=== PATIENT | female | born 1935 | race Two or more races ===

== ENCOUNTER 2018-02-16 13:34 | Outpatient (CLI) | payer MEDICARE, BC | END 2018-02-16 23:59 | disposition home health service (06) | LOC: WOU 13:34 | PROVIDERS: ATTEND Podiatrist Foot & Ankle Surgery | DX: S81.812A Laceration without foreign body, left lower leg, initial encounter (principal); W18.30XA Fall on same level, unspecified, initial encounter; Y92.89 Other specified places as the place of occurrence of the external cause; I87.8 Other specified disorders of veins; R60.0 Localized edema; L90.9 Atrophic disorder of skin, unspecified | CPT/HCPCS: 11042; 11045; A6402; A6452 ==

== ENCOUNTER 2018-02-23 15:08 | Outpatient (CLI) | payer MEDICARE, BC | END 2018-02-23 23:59 | disposition home health service (06) | LOC: EDBD → WOU 15:08 | PROVIDERS: ATTEND Podiatrist Foot & Ankle Surgery | DX: S81.812A Laceration without foreign body, left lower leg, initial encounter (principal); L03.116 Cellulitis of left lower limb; W19.XXXA Unspecified fall, initial encounter; Y92.89 Other specified places as the place of occurrence of the external cause; Y99.8 Other external cause status; L90.9 Atrophic disorder of skin, unspecified | CPT/HCPCS: 11042; 11045; A6402 ×2; A6452 ==

== ENCOUNTER 2018-03-02 12:24 | Outpatient (CLI) | payer MEDICARE, BC | END 2018-03-02 23:59 | disposition home health service (06) | LOC: EDBD → WOU 12:24 | PROVIDERS: ATTEND Podiatrist Foot & Ankle Surgery | DX: S81.812A Laceration without foreign body, left lower leg, initial encounter (principal); W19.XXXA Unspecified fall, initial encounter; Y92.89 Other specified places as the place of occurrence of the external cause; L90.9 Atrophic disorder of skin, unspecified; I96 Gangrene, not elsewhere classified; R60.0 Localized edema | CPT/HCPCS: 11043; A6402; A6452 ==

== ENCOUNTER 2018-03-09 13:03 | Outpatient (CLI) | payer MEDICARE, BC | END 2018-03-09 23:59 | disposition home health service (06) | LOC: EDBD → WOU 13:03 | PROVIDERS: ATTEND Podiatrist Foot & Ankle Surgery | DX: S81.812A Laceration without foreign body, left lower leg, initial encounter (principal); L03.116 Cellulitis of left lower limb; L90.9 Atrophic disorder of skin, unspecified; W19.XXXA Unspecified fall, initial encounter; Y92.89 Other specified places as the place of occurrence of the external cause; Y99.8 Other external cause status | CPT/HCPCS: 11042; A6402; A6452 ==

== ENCOUNTER 2018-03-16 12:56 | Outpatient (CLI) | payer MEDICARE, BC | END 2018-03-16 23:59 | disposition home health service (06) | LOC: EDBD → WOU 12:56 | PROVIDERS: ATTEND Podiatrist Foot & Ankle Surgery | DX: S81.812A Laceration without foreign body, left lower leg, initial encounter (principal); W19.XXXA Unspecified fall, initial encounter; Y92.89 Other specified places as the place of occurrence of the external cause; R60.9 Edema, unspecified | CPT/HCPCS: 11042; A6402; A6452 ==

== ENCOUNTER 2018-03-23 13:00 | Outpatient (CLI) | payer MEDICARE, BC | END 2018-03-23 23:59 | disposition home health service (06) | LOC: EDBD → WOU 13:00 | PROVIDERS: ATTEND Podiatrist Foot & Ankle Surgery | DX: S81.812A Laceration without foreign body, left lower leg, initial encounter (principal); L97.822 Non-pressure chronic ulcer of other part of left lower leg with fat layer exposed; W19.XXXA Unspecified fall, initial encounter; Y92.89 Other specified places as the place of occurrence of the external cause; R60.9 Edema, unspecified | CPT/HCPCS: 11042; A6402; A6452 ==

== ENCOUNTER 2018-03-30 13:17 | Outpatient (CLI) | payer MEDICARE, BC | END 2018-03-30 23:59 | disposition home health service (06) | LOC: EDBD → WOU 13:17 | PROVIDERS: ATTEND Podiatrist Foot & Ankle Surgery | DX: L97.822 Non-pressure chronic ulcer of other part of left lower leg with fat layer exposed (principal); S81.812S Laceration without foreign body, left lower leg, sequela; W22.8XXS Striking against or struck by other objects, sequela; L84 Corns and callosities; R60.0 Localized edema; L90.9 Atrophic disorder of skin, unspecified; I87.2 Venous insufficiency (chronic) (peripheral) | CPT/HCPCS: 11042; A6402; A6452 ==

== ENCOUNTER 2018-04-06 12:49 | Outpatient (CLI) | payer MEDICARE, BC | END 2018-04-06 23:59 | disposition home health service (06) | LOC: EDBD → WOU 12:49 | PROVIDERS: ATTEND Podiatrist Foot & Ankle Surgery | DX: S81.812A Laceration without foreign body, left lower leg, initial encounter (principal); L97.822 Non-pressure chronic ulcer of other part of left lower leg with fat layer exposed; X58.XXXA Exposure to other specified factors, initial encounter; Y92.89 Other specified places as the place of occurrence of the external cause; L03.116 Cellulitis of left lower limb; I87.2 Venous insufficiency (chronic) (peripheral) | CPT/HCPCS: 11042; A6402; A6452 ==

== ENCOUNTER 2018-04-13 13:15 | Outpatient (CLI) | payer MEDICARE, BC | END 2018-04-13 23:59 | disposition home health service (06) | LOC: EDBD → WOU 13:15 | PROVIDERS: ATTEND Podiatrist Foot & Ankle Surgery | DX: L97.822 Non-pressure chronic ulcer of other part of left lower leg with fat layer exposed (principal); S81.812S Laceration without foreign body, left lower leg, sequela; W18.30XS Fall on same level, unspecified, sequela | CPT/HCPCS: 11042; A6402; A6452 ==

== ENCOUNTER 2018-04-20 13:11 | Outpatient (CLI) | payer MEDICARE, BC | END 2018-04-20 23:59 | disposition home health service (06) | LOC: EDBD → WOU 13:11 | PROVIDERS: ATTEND Podiatrist Foot & Ankle Surgery | DX: L97.821 Non-pressure chronic ulcer of other part of left lower leg limited to breakdown of skin (principal); S80.812S Abrasion, left lower leg, sequela; W22.8XXS Striking against or struck by other objects, sequela; Z79.899 Other long term (current) drug therapy | CPT/HCPCS: 11042; A6402; A6452 ==

== ENCOUNTER 2018-04-28 13:40 | Outpatient (CLI) | payer MEDICARE, BC | END 2018-04-28 23:59 | disposition home health service (06) | LOC: EDBD → WOU 13:40 | PROVIDERS: ATTEND Podiatrist Foot & Ankle Surgery | DX: S81.812A Laceration without foreign body, left lower leg, initial encounter (principal); W18.30XA Fall on same level, unspecified, initial encounter; Y92.89 Other specified places as the place of occurrence of the external cause; L90.9 Atrophic disorder of skin, unspecified; I87.303 Chronic venous hypertension (idiopathic) without complications of bilateral lower extremity | CPT/HCPCS: 11042; A6402 ==

== ENCOUNTER 2018-05-04 13:11 | Outpatient (CLI) | payer MEDICARE, BC | END 2018-05-04 23:59 | disposition home health service (06) | LOC: EDBD → WOU 13:11 | PROVIDERS: ATTEND Podiatrist Foot & Ankle Surgery | DX: L97.822 Non-pressure chronic ulcer of other part of left lower leg with fat layer exposed (principal); S81.812S Laceration without foreign body, left lower leg, sequela; W45.8XXS Other foreign body or object entering through skin, sequela; L90.9 Atrophic disorder of skin, unspecified | CPT/HCPCS: 11042; A6402 ==

== ENCOUNTER 2018-05-11 13:36 | Outpatient (CLI) | payer MEDICARE, BC | END 2018-05-11 23:59 | disposition home health service (06) | LOC: EDBD → WOU 13:36 | PROVIDERS: ATTEND Podiatrist Foot & Ankle Surgery | DX: L97.822 Non-pressure chronic ulcer of other part of left lower leg with fat layer exposed (principal); S81.812S Laceration without foreign body, left lower leg, sequela; W45.8XXS Other foreign body or object entering through skin, sequela; I87.303 Chronic venous hypertension (idiopathic) without complications of bilateral lower extremity; L90.9 Atrophic disorder of skin, unspecified | CPT/HCPCS: 11042; A6402; Z7610 ==

== ENCOUNTER 2018-05-18 13:04 | Outpatient (CLI) | payer MEDICARE, BC | END 2018-05-18 23:59 | disposition home health service (06) | LOC: EDBD → WOU 13:04 | PROVIDERS: ATTEND Podiatrist Foot & Ankle Surgery | DX: L97.822 Non-pressure chronic ulcer of other part of left lower leg with fat layer exposed (principal); S81.812S Laceration without foreign body, left lower leg, sequela; W22.8XXS Striking against or struck by other objects, sequela; L90.9 Atrophic disorder of skin, unspecified | CPT/HCPCS: 11042; A6402 ==

== ENCOUNTER 2018-05-25 13:02 | Outpatient (CLI) | payer MEDICARE, BC | END 2018-05-25 23:59 | disposition home health service (06) | LOC: WOU 13:02 → EDBD 13:02 → WOU 23:59 | PROVIDERS: ATTEND Podiatrist Foot & Ankle Surgery | DX: L97.822 Non-pressure chronic ulcer of other part of left lower leg with fat layer exposed (principal); S81.812S Laceration without foreign body, left lower leg, sequela; W18.09XS Striking against other object with subsequent fall, sequela; L90.9 Atrophic disorder of skin, unspecified | CPT/HCPCS: 17250; A6402; Z7610 ==

== ENCOUNTER 2018-06-01 13:10 | Outpatient (CLI) | payer MEDICARE, BC | END 2018-06-01 23:59 | disposition home or self-care (01) | LOC: WOU 13:10 | PROVIDERS: ATTEND Podiatrist Foot & Ankle Surgery | DX: L90.9 Atrophic disorder of skin, unspecified (principal); R60.0 Localized edema | CPT/HCPCS: A6402; G0463; Z7610 ==

== ENCOUNTER 2018-07-13 13:26 | Outpatient (CLI) | payer MEDICARE, BC | END 2018-07-13 23:59 | disposition home or self-care (01) | LOC: WOU 13:26 | PROVIDERS: ATTEND Podiatrist Foot & Ankle Surgery | DX: L84 Corns and callosities (principal); B35.1 Tinea unguium; I87.2 Venous insufficiency (chronic) (peripheral); R60.9 Edema, unspecified | CPT/HCPCS: G0463; Z7610 ==